=== PATIENT | male | born 1985 | race Two or more races ===

== ENCOUNTER 2018-08-12 22:31 | Emergency (ER) | payer SELFPAY ==
[~2018-08-12] VITALS: Ht 185.4 cm; Wt 61.2 kg
[2018-08-12 23:25] VITALS: BP 136/80
--- NOTE | 2018-08-12 23:25 | NUR ---
ED Nurse Note: PT BROUGHT IN BY [employer] UNDER CUSTODY FOR MEDICAL CLEARANCE, PT IS AWAKE AND ALERT, HAS NO COMPLAINTS AND NO DISTRESS NOTED. Patient is cleared to be discharged per ERMD, pt is aox4, on room air, with stable vital signs. pt was given dc and prescription instructions, pt was able to verbalize understanding, pt id band removed without complications. pt is able to ambulate with steady gait. pt took all belongings.
--- NOTE | 2018-08-13 00:04 | Emergency Room Report ---
History of Present Illness General Chief Complaint: Medical Clearance Source: Patient, Law Enforcement Present Illness HPI 33-year-old male presents ED for evaluation. Brought in by [employer] for clearance. Patient has no complaints. Denies any pain. Denies any chest pain or shortness of breath. Denies any nausea or vomiting. Appears intoxicated. Admits to alcohol use. Denies drug use. No other aggravating relieving factors. Denies any other associated symptoms Allergies: Coded Allergies: No Known Allergies (Unverified , 08/12/18) Patient History Past Medical History: none Past Surgical History: none Pertinent Family History: none Social History: Reports: alcohol use; Denies: smoking, drug use Immunizations: UTD Reviewed Nursing Documentation: PMH: Agreed; PSxH: Agreed Nursing Documentation-PMH Past Medical History: No Stated History Review of Systems All Other Systems: negative except mentioned in HPI Physical Exam Vital Signs Date Time Temp Pulse Resp B/P (MAP) Pulse Ox O2 Delivery O2 Flow Rate FiO2 08/12/18 22:33 97.5 90 20 136/80 (98) 95 Room Air Sp02 EP Interpretation: reviewed, normal General Appearance: no apparent distress, alert, GCS 15, non-toxic Head: normocephalic Eyes: bilateral eye normal inspection, bilateral eye PERRL ENT: normal ENT inspection Neck: normal inspection Respiratory: normal inspection Cardiovascular #1: normal inspection Gastrointestinal: normal inspection Rectal: deferred Genitourinary: no CVA tenderness Musculoskeletal: normal inspection Neurologic: other - intoxicated Psychiatric: other - intoxicated Skin: normal inspection Lymphatic: normal inspection Medical Decision Making Diagnostic Impression: Primary Impression: Medical clearance for incarceration ER Course Hospital Course 33-year-old male presents to ED for usp clearance. Denies any complaints or injuries prior to arrival Clinical course Patient placed on stretcher. Handcuffs. After initial history, physical exam reveals a male in no acute distress. physical exam was unremarkable. I believe patient be safely discharged into police custody. Diagnosis - medical clearance for incarceration stable and discharged into police custody Last Vital Signs Date Time Temp Pulse Resp B/P (MAP) Pulse Ox O2 Delivery O2 Flow Rate FiO2 08/12/18 23:25 97.5 20 136/80 95 Room Air 08/12/18 22:50 90 Status: improved Disposition: D/C TO LAW ENFORCEMENT IN CUST Condition: Stable Referrals: NOT CHOSEN IPA/MD,REFERRING (PCP) [facility] Aydee Cox. [facility] Departure Forms: Snf Clearance Patient Instructions: Alcohol Intoxication, [id number] Shlomo Hill MD Aug 13, 2018 00:04
== END 2018-08-12 23:25 ==
LOC: EMR 23:03
DX: F10.129 Alcohol abuse with intoxication, unspecified (principal)
CPT/HCPCS: 99281

== ENCOUNTER 2018-08-13 03:35 | Emergency (ER) | payer SELFPAY ==
[~2018-08-13] VITALS: Ht 180.3 cm; Wt 61.2 kg
--- NOTE | 2018-08-13 03:45 | NUR ---
ED Nurse Note: recieved pt brought in by police under custody for second time, here with bilat wrist pain, pt bilat wrist are in handcuffs, noted with redness, swelling and abrasions in areas, pt states cuffs are too tight, and has pain at 6/10 to area also, pt is able to move wrist and pulses are present, wilol resume care as ordered and continue to closely monitor.
[2018-08-13 04:45] VITALS: BP 125/69
[2018-08-13 04:55] VITALS: BP 125/69
--- NOTE | 2018-08-13 08:19 | Diagnostic Imaging Report ---
Indication: Wrist pain status post injury Technique: 3 views of the right wrist Comparison: None. Correlation made to concurrent left wrist radiographs Findings: Bone mineralization within normal limits. There is no evidence of acute fracture. Alignment and joint spaces are maintained. No radiopaque foreign body. Impression: No evidence of acute fracture or dislocation.
--- NOTE | 2018-08-13 09:13 | Diagnostic Imaging Report ---
Indication: Wrist pain status post injury Technique: 3 views of the left wrist Comparison: None. Correlation made to concurrent right wrist radiographs Findings: Bone mineralization within normal limits. There is a subtle horizontal lucency within the pisiform noted which may represent a vascular channel however subtle fracture is not excluded, especially if there is history of direct blow/injury to the wrist. Correlate for point tenderness in this region is recommended. Alignment and joint spaces are maintained. No radiopaque foreign body. Impression: Subtle transverse lucency noted within the pisiform which may represent a vascular channel or sequela of remote injury. Possibility of a subtle acute fracture not excluded given history of trauma but thought less likely given lack of significant overlying soft tissue swelling. Please correlate clinically. Findings discussed with Dr. Marina emergency department
--- NOTE | 2018-08-16 07:05 | Emergency Room Report ---
History of Present Illness General Chief Complaint: Upper Extremity Injury Source: Patient, Law Enforcement Present Illness HPI 33-year-old male presents ED for evaluation. Patient is here for medical clearance. Is in police custody. That his handcuffs are too tight. Complaining of bilateral wrist pain. Pain is throbbing, 6 out of 10, nonradiating. Was here earlier for medical clearance but had no complaints at that time. Denies any other injury. No other aggravating relieving factors. Denies any other associated symptoms Allergies: Coded Allergies: No Known Allergies (Unverified , 08/12/18) Patient History Past Medical History: none Past Surgical History: none Pertinent Family History: none Social History: Denies: smoking, alcohol use, drug use Immunizations: UTD Reviewed Nursing Documentation: PMH: Agreed; PSxH: Agreed Review of Systems All Other Systems: negative except mentioned in HPI Physical Exam Vital Signs Date Time Temp Pulse Resp B/P (MAP) Pulse Ox O2 Delivery O2 Flow Rate FiO2 08/13/18 03:38 97.9 74 18 139/76 (97) 98 Room Air Sp02 EP Interpretation: reviewed, normal General Appearance: no apparent distress, alert, GCS 15, non-toxic Head: normocephalic Eyes: bilateral eye normal inspection, bilateral eye PERRL ENT: normal ENT inspection Neck: normal inspection Respiratory: normal inspection Cardiovascular #1: normal inspection Gastrointestinal: normal inspection Rectal: deferred Genitourinary: no CVA tenderness Musculoskeletal: tender - bilateral wrist, bishop on bilateral wrists from handcuffs. good pulses bilaterally Neurologic: alert, oriented x3, responsive, motor strength/tone normal, sensory intact, speech normal Psychiatric: normal inspection Skin: palpation normal Lymphatic: normal inspection Medical Decision Making Diagnostic Impression: Primary Impression: Wrist pain Qualified Codes: M25.531 - Pain in right wrist; M25.532 - Pain in left wrist Additional Impression: Medical clearance for incarceration ER Course Hospital Course 33 yo M presents with bilateral wrist pain. in police custody Differential diagnoses include: Fracture, dislocation, sprain, contusion Clinical course Patient placed on stretcher. After initial history and physical, I ordered xrays of bilateral wrists Xrays prelim read shows no acute fracture/dislocation. Likely due to handcuffs being too tight. There are markings on both wrists from the handcuffs. Asked [employer] to loosen the handcuffs but patient can be medically cleared at this time Diagnosis - wrist pain, medical clearance for incarceration Stable and discharged to police custody. apply ice, keep elevated. weight bear as tolerated. Followup with PMD. Return to ED if symptoms recur or worsen Other X-Ray Diagnostic Results Other X-Ray Diagnostic Results #1: X-Ray ordered: R wrist # of Views/Limited Vs Complete: 3 View Indication: Pain EP Interpretation: Yes Interpretation: no dislocation, no soft tissue swelling, no fractures Impression: No acute disease Electronically Signed by: Electronically signed by Shlomo Hill MD Other X-Ray Diagnostic Results #2: X-Ray ordered: L wrist # of Views/Limited Vs Complete: 3 View Indication: Pain EP Interpretation: Yes Interpretation: no dislocation, no soft tissue swelling, no fractures Impression: No acute disease Electronically Signed by: Electronically signed by Shlomo Hill MD Last Vital Signs Date Time Temp Pulse Resp B/P (MAP) Pulse Ox O2 Delivery O2 Flow Rate FiO2 08/13/18 04:55 98.3 76 18 125/69 98 Room Air Status: improved Disposition: D/C TO LAW ENFORCEMENT IN CUST Condition: Stable Referrals: NOT CHOSEN PATRICIA/,REFERRING (PCP) Aydee Jacobson [facility] Departure Forms: Usp Clearance Patient Instructions: Wrist Pain, [id number] Shlomo Hill MD Aug 16, 2018 07:05
== END 2018-08-13 04:55 | disposition home or self-care (01) ==
LOC: EMR 04:01
DX: M25.532 Pain in left wrist (principal); M25.531 Pain in right wrist
CPT/HCPCS: 99283